=== PATIENT | female | born 1975 | race Caucasian/White ===

== ENCOUNTER → 2017-07-24 15:15 | Outpatient (CLI) | payer OTHER, SELFPAY ==
--- NOTE | 2017-07-24 | BRBX_PTH ---
PATIENT: MELE HINSON LOC: [facility] U#:[id number] AGE/SX: 49/F ROOM: RE07/24/[address]: Dr. Janet Urbina MD : 1975 BED: DIS: SPEC #: [id number] RECD: 07/24/17 05:12 STATUS: NEMO CHERYL #: [id number] NILA: 07/24/17 00:[address]: Janet Urbina DEPT: SURGICAL PATHOLOGY RECD BY: Raj Nava Tissues: Left breast, NOS Procedures: Surgery Specimen Level IV HEADER OPERATION: Ultrasound-guided left breast needle core biopsy PRE-OP DIAGNOSIS: Abnormal mammogram/ultrasound TISSUE SUBMITTED: Left breast needle core biopsy ISCHEMIC TIME: 2 minutes MICROSCOPIC DIAGNOSIS Left breast, ultrasound-guided needle core biopsy: Consistent with fibroadenoma. Focal ductal dilation. Negative for atypia or malignancy. SJ:elieser 07/28/17 COMMENT Correlation with clinical, radiologic findings and appropriate follow up are necessary. MICROSCOPIC DESCRIPTION Slides are reviewed. GROSS DESCRIPTION Received in fixative is one container labeled with the patient's name and designated left breast biopsy. The specimen consists of multiple elongated fragments of wong-yellow fibroadipose tissue that in aggregate measure 2 x 1 x 1 cm. The entire specimen is submitted in one cassette. / SJ:elieser 07/24/17 TC:[facility]: [id number]
--- NOTE | 2017-07-24 15:15 | DT_ITS ---
This patient was seen during an EMR downtime July 20, 2017 - July 27, 2017. This patient may have a combination of paper and electronic documentation or all paper documentation. All documentation is viewable within the e-chart portion of [employer] for each patient visit.
== END ==
PROVIDERS: Visit Provider Surgery
DX: R92.8 Other abnormal and inconclusive findings on diagnostic imaging of breast (principal)
CPT/HCPCS: 88305

== ENCOUNTER → 2018-05-01 10:24 | Outpatient (CLI) | payer OTHER, SELFPAY ==
[2018-05-01 11:56] LABS: AST(SGOT) 331 U/L (15-37); Alanine Aminotransfer ALT/SGPT 98 U/L (13-56); Albumin, Serum 3.7 g/dL (3.2-5.0); Alkaline Phosphatase 78 U/L (45-117); Anion Gap 4 (5-15); BUN 15 mg/dL (7-18); Calcium,Total 8.6 mg/dL (8.5-10.1); Chloride 110 mmol/L (98-107); Cholesterol 140 mg/dL (200); Creatinine, Serum 0.75 mg/dL (0.55-1.02); EST Glomerular Filtration Rate 90 mL/min (>60); Est Glom Filt Rate - Afr Amer 109 mL/min (>60); Globulin 3.7 g/dL (2.2-4.2); Glucose 86 mg/dL (74-106); High Density Lipoprotein 46 mg/dL; Magnesium 2.4 mg/dL (1.6-2.6); Potassium 4.1 mmol/L (3.5-5.1); Protein, Total 7.4 g/dL (6.4-8.2); Sodium Level 141 mmol/L (136-145); T4 Free Direct 0.97 ng/dL (0.76-1.46); Thyroid Stim Hormone (TSH) 0.81 uIU/mL (0.358-3.74); Triglycerides 57 mg/dL; Very Low Density Lipoprotein 11 mg/dL (5-40)
[2018-05-05 11:20] LABS: Renin, Plasma 0.534 ng/mL/hr (0.167-5.380)
[2018-05-07 16:04] LABS: HEPATITIS B SURFACE AG Negative (Negative); Hepatitis A IgM Antibody Negative (Negative); Hepatitis B Core AB IgM Negative (Negative)
[2018-05-08 11:49] LABS: Hep C Antibodies <0.1 s/co ratio (0.0-0.9)
== END ==
PROVIDERS: Family Provider Family Medicine; PCP Family Medicine; Referring Provider Family Medicine; Visit Provider Family Medicine
DX: I10 Essential (primary) hypertension (principal)
CPT/HCPCS: 36415; 80053; 80061; 80074; 82088; 83735; 84244; 84439; 84443

== ENCOUNTER → 2018-05-12 07:46 | Outpatient (CLI) | payer OTHER, SELFPAY ==
--- NOTE | 2018-05-12 07:49 | RDU_ITS ---
Reason For Study: HYPERTENSION Right Renal Artery Left Renal Artery Right renal artery ostium 142/43.8 Left renal artery ostium 151/57.5 RSV/EDV. PSV/EDV. Right renal artery proximal Left renal artery proximal PSV/EDV 121/51.8 PSV/EDV. 125/47.3 . Right renal artery mid 136/56.3 Left renal artery mid 127.0/40.4 PSV/EDV. PSV/EDV . Right renal artery distal Left renal artery distal 130/46.5 139.0/59.9 PSV/EDV. PSV/EDV. Right Renal Parenchyma Left Renal Parenchyma Upper Pole Medula 30.6/13.4 Left upper pole medulla 38.3/16.9 PSV/EDV. PSV/EDV . Right upper pole medulla EDR .44 . Left upper pole medulla EDR .44 . Right upper pole medulla R.I. .56 . Left upper pole medulla R.I. .56 . Upper Taye Cortx 30.6/15.0 PSV/EDV. UP Cortex 24.2/10.0 PSV/EDV. Right upper pole cortex EDR .49 . Left upper pole cortex EDR .41 . Right upper pole cortex R.I. .51 . Left upper pole cortex R.I. .58 . Right lower Pole medulla 40.0/16.5 Left lower Pole medulla 38.3/17.8 PSV/EDV . PSV/EDV . Right lower pole medulla EDR .41 . Left lower pole medulla EDR .46 . Right lower pole medulla R.I. .59 . Left lower pole medulla R.I. .54 . Lower Pole Cortex 29.9/13.1 Lower Pole Cortx 31.0/16.0 PSV/EDV. PSV/EDV. Left lower pole cortex EDR .52 . Right lower pole cortex EDR .44 . Left Renal Hilar Right lower pole cortex R.I. .56 . LT Hilar avg 70.2/21.0 PSV/EDV . Right Renal Hilar Left hilar acceleration time 44 Right Hilar avg 73.9/35.4 PSV/EDV. m/sec. Right hilar acceleration time 37 Left Renal Dimensions m/sec. Left kidney size 9.6 cm . Right Renal Dimensions Left cortical dimension 1.5 cm . Right kidney size 9.3 cm . Right cortical dimension 1.4 cm . Aorta Proximal abdominal aorta 1.3 x 1.3 cm . Distal abdominal aorta 1.3 x 1.2 cm . Proximal abdominal aorta peak systolic velocity is 125 cm/sec . Distal abdominal aorta peak systolic velocity is 104 cm/sec . Interpretation Summary Dimensions of the intra-abdominal aorta appear normal, without evidence of aneurysmal dilatation. Renal artery velocities are bilaterally normal. Acceleration times are normal bilaterally. There is no evidence of hemodynamically significant renal artery stenosis on either side. Renovascular resistance appears to be bilaterally normal . Cortical dimensions are bilaterally normal. Kidneys appear normal in size bilaterally. Ordering Physician: Wallace Irving Referring Physician: Wallace Irving Performed By: Ernestina Ramachandran RVT
== END ==
PROVIDERS: Family Provider Family Medicine; PCP Family Medicine; Referring Provider Family Medicine; Visit Provider Family Medicine
DX: I10 Essential (primary) hypertension (principal)
CPT/HCPCS: 93975

== ENCOUNTER → 2018-05-20 08:03 | Outpatient (CLI) | payer OTHER, SELFPAY ==
--- NOTE | 2018-05-20 08:05 | US_ITS ---
STUDY: ABDOMINAL ULTRASOUND - RIGHT UPPER QUADRANT REASON FOR VISIT: Female, 42 years old. Abnormal liver function TECHNIQUE: Ultrasound evaluation of the right upper quadrant was performed with real-time and static winchester-scale imaging. TECHNICAL QUALITY: Adequate. COMPARISON: None. FINDINGS: Liver: The liver measures 15.8 cm. There is normal echogenicity of the liver. The bile ducts are within normal limits. There is hepatic color flow. The direction of portal flow is hepatopetal. There is no demonstrated mass lesion. Gallbladder: Normal distended gallbladder. The gallbladder wall measures 3 mm. There is a negative sonographic Sandhu's sign. There is no pericholecystic fluid. There are no gallstones. Common Bile Duct (C.B.D.): The common bile duct measures 2.4 mm. Pancreas: Normal size of the head, body and tail of the pancreas. There is normal echogenicity of the pancreas. There is no demonstrated pancreatic mass or cyst. Right Kidney: Normal size of the right kidney. The right kidney measures 10.3 x 5.7 x 4.6 cm. Normal renal cortex. The right cortex measures 1.9 cm. There is no demonstrated renal mass or cyst. There is no right hydronephrosis. US/Abdomen Limited IMPRESSION: Normal right upper quadrant ultrasound examination. Electronically Signed: Raymond Gould DO at 22:48 EDT Tel [phone], Service support ,
--- NOTE | 2018-05-20 08:33 | US_ITS ---
STUDY: RENAL ULTRASOUND - COMPLETE REASON FOR EXAM: Female, 42 years old. Abnormal labs TECHNIQUE: Ultrasound evaluation of the kidneys was performed with real-time and static shultz-scale imaging. COMPARISON: None. FINDINGS: RIGHT KIDNEY: Normal location of the right kidney, which is normal in size. The right kidney measures 10.1 x 5.7 x 4.6 cm. There is a normal cortex of the right kidney. The renal cortex measures 1.9 cm. There is no right renal mass or cyst. There are no right renal calculi. There is no right hydronephrosis. DISTAL RIGHT URETER: There is non-visualization of the distal right ureter. There is a visualized right ureteral jet. LEFT KIDNEY: Normal location of the left kidney, which is normal in size. The left kidney measures 11.4 x 4.8 x 6.6 cm. There is a normal cortex of the left kidney. The renal cortex measures 1.7 cm. There is no left renal mass or cyst. There are no left renal calculi. There is no left hydronephrosis. DISTAL LEFT URETER: There is non-visualization of the distal left ureter. There is a visualized left ureteral jet. BLADDER: The distended urinary bladder has a volume of 98 ml. There is a normal wall thickness of the distended urinary bladder. There is no demonstrated mass within the urinary bladder. There are no demonstrated bladder calculi. IUD is noted in the uterus. US/Kidney and Bladder IMPRESSION: Normal ultrasound of the kidneys and urinary bladder. Electronically Signed: Raymond Gould DO at 22:47 EDT Tel [phone], Service support ,
== END ==
PROVIDERS: Family Provider Family Medicine; PCP Family Medicine; Referring Provider Family Medicine; Visit Provider Family Medicine
DX: R94.5 Abnormal results of liver function studies (principal)
CPT/HCPCS: 76705; 76770